=== PATIENT | male | born 1955 | race Two or more races ===

== ENCOUNTER 2024-04-19 12:29 | Outpatient (CLI) | payer MEDICARE | END 2024-04-19 12:30 | disposition home or self-care (01) | LOC: CSHCT 12:29 | PROVIDERS: ATTEND Student in an Organized Health Care Education/Training Program | DX: Z12.2 Encounter for screening for malignant neoplasm of respiratory organs (principal); F17.210 Nicotine dependence, cigarettes, uncomplicated; J43.2 Centrilobular emphysema; J98.4 Other disorders of lung; R91.1 Solitary pulmonary nodule; K80.20 Calculus of gallbladder without cholecystitis without obstruction | CPT/HCPCS: 71271 ==